=== PATIENT | female | born 1960 | race Two or more races ===

== ENCOUNTER → 2018-09-11 | Outpatient (CLI) | payer OTHER | LOC: MAMMO 09:33 | PROVIDERS: ATTEND Internal Medicine | DX: Z12.31 Encounter for screening mammogram for malignant neoplasm of breast (principal) | CPT/HCPCS: 77067 ==

== ENCOUNTER → 2018-10-06 | Outpatient (CLI) | payer OTHER ==
--- NOTE | 2018-10-07 09:09 | Diagnostic Imaging Report ---
#[id number] - [id number] #UNILATERAL LEFT DIGITAL DIAGNOSTIC MAMMOGRAM WITH SPOT COMPRESSION AND MAGNIFICATION: 10/06/2018 Comparison is made to exam dated: 09/11/2018 mammogram - [facility]. Current study contains 4 films. The tissue of the left breast is heterogeneously dense. This may lower the sensitivity of mammography. There is a heterogeneous loosely grouped microcalcification in the left breast at 1 o'clock anterior depth. 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 IMPRESSION: HIGHLY SUGGESTIVE OF MALIGNANCY The heterogeneous calcification in the left breast is highly suggestive of malignancy. A stereotactic biopsy is recommended. A phone call was made to the physician and the case discussed with Dr. Sanjana Webster. The patient will be contacted by the Mammography Department to schedule this appointment. Erwin Murphy Jr., D.O. cw/:10/06/2018 14:40:07 Wood Borer: Nancy GARCIAS(Monique)(Emanuel), [facility] letter sent: Biopsy Required Mammogram BI-RADS: 5 Highly suggestive of malignancy
== END ==
LOC: MAMMO 09:36
PROVIDERS: ATTEND Internal Medicine
DX: R92.1 Mammographic calcification found on diagnostic imaging of breast (principal)

== ENCOUNTER → 2018-10-27 | Outpatient (CLI) | payer OTHER ==
[~2018-10-27] MED LIST: LIDOCAINE 2% /EPINEPHRINE 20 ML SDV INJ ONE; LIDOCAINE HCL 1% LOCAL INJ 20 ML VIAL ONE; SODIUM CHLORIDE 0.9% 250ML 250 ML ONE
--- NOTE | 2018-10-28 08:23 | Diagnostic Imaging Report ---
#[id number] - [id number] STEREOTACTIC GUIDED BIOPSY: 10/27/2018 PATIENT CONSENT: According to [facility] requirements, a time out was performed, correct site was localized and the patient was consented. PROCEDURE DESCRIPTION: A stereotactic biopsy of calcifications in the left breast was requested. The procedure was fully discussed with the patient including benefits, risks and alternatives. The need for a post biopsy clip was discussed. It was performed with written informed consent. A full time staff interpreter out was taken prior to beginning the biopsy to confirm patient and procedure, including laterality. The area of concern was targeted stereotactically using an upright biopsy machine. The area over the site was prepared in the standard full barrier sterile fashion. Local anesthsia was achieved with 1% Lidocaine. The biopsy probe was advanced to the lesion and vacuum assisted core biopsy samples obtained. A micromarker was placed. After removal of the probe, hemostasis was achieved with compression and a sterile bandage was applied. A specimen radiograph shows calcifications within the cores, concordant with biopsy images. Following the procedure, the patient was discharged from the breast area with a post biopsy hematoma noted. Full post biopsy instructions were provided and acknowledged by the patient. Correlation is made to exams dated: 10/06/2018 mammogram and 09/11/2018 mammogram - [facility]. IMPRESSION: STEREOTACTIC GUIDED BIOPSY Erwin Murphy Jr., D.O. cw/:10/27/2018 15:51:52 Aircraft Maintenance Technician: Nancy BUCKNER)(Emanuel), [facility] [id number]
== END ==
LOC: MAMMO 12:09
PROVIDERS: ATTEND Internal Medicine
DX: R92.1 Mammographic calcification found on diagnostic imaging of breast (principal)
CPT/HCPCS: 19081; 88305; J2001 ×2; J7050